=== PATIENT | male | born 1960 | race Caucasian/White ===

== ENCOUNTER 2025-11-06 12:08 | Outpatient (CLI) | payer BC, SELFPAY ==
--- NOTE | ~2025-11-06 | US_ITS ---
EXAMINATION: US FNA w image guidance DATE: 11/06/2025 13:38 INDICATION: Nontoxic multinodular goiter TECHNIQUE: A time-out was performed to verify the patient's name, date of , and procedure to be performed. The procedure and its benefits and risks were discussed with the patient. Risks specifically discussed included bleeding and infection. The patient understood the risks and agreed to proceed. The neck was prepped and draped in the usual sterile manner. 3 mL 1% lidocaine was used for local anesthesia. 6 passes were made with a 25G needle into the lesion. Appropriate needle location was documented with continuous sonographic guidance. A sterile bandage was applied. There were no immediate complications. FINDINGS: Grayscale ultrasound images demonstrate biopsy needles advanced into a 3.5 cm predominantly solid isoechoic nodule with lobular margins and shadowing coarse calcification in the mid to inferior right thyroid. IMPRESSION: 1. Successful ultrasound-guided fine needle aspiration of a 3.5 cm solid nodule in the mid to inferior right thyroid lobe Reviewed, dictated and finalized at location A. HEAD WORKER IMPRESSION: 1. Successful ultrasound-guided fine needle aspiration of a 3.5 cm solid nodul e in the mid to inferior right thyroid lobe
--- NOTE | 2025-11-06 13:34 | CY_PTH ---
PATIENT: Florin Sarabia LOC: [facility] U#:[id number] AGE/SX: 65/M ROOM: RE11/06/[address]: Willie Toth MD : 1960 BED: DIS: 11/06/2025 SPEC #: [id number] RECD: 11/06/25 13:37 STATUS: CATERINA REJoan #: [id number] MARYAN: 11/06/25 13:[address]: Willie Toth DEPT: [facility] Cytology RECD BY: Walter Bello ENTERED: 11/06/25 13:38 SP TYPE: Cytology OTHR DR: Ted Rubio M.D. Tissues: A - FNA Thyroid Procedures: Hematoxylin and Eosin Stain Cell Block Fine Needle Aspiration Evaluation Fna Additional Pass Fine Needle Aspiration Pathologist
--- OUTSIDE RECORDS SUMMARY | 2025-11-06 14:07 | XMS_ITS | Clinical Summary ---
Author Organization [facility] Address [address] [facility] [place] [address] Phone Care Team Providers Care Plant Machinist Name Role Phone Unavailable Primary Care Provider Unavailabl e Allergies No known active allergies Medications gabapentin (NEURONTIN) 100 mg capsule Take 200 mg by mouth 2 times daily. Active ferrous sulfate 325 mg (65 mg iron) tablet Take 325 mg by mouth daily. Active metFORMIN (GLUCOPHAGE XR) 500 mg Extended Release 24 hour tablet Take 500 mg by mouth 2 times daily with meals. Active tirzepatide (Mounjaro) 2.5 mg/0.5 mL Pen Injector Inject 2.5 mg by subcutaneous injection every 7 days. Active sertraline (Zoloft) 50 mg tablet Take 50 mg by mouth daily. Active magnesium oxide 400 mg magnesium Capsule Take by mouth daily. Active metoprolol succinate (TOPROL XL) 25 mg Extended Release 24 hour tablet Take 25 mg by mouth daily. 5 Active losartan (COZAAR) 25 mg tablet Take 25 mg by mouth daily. 5 Active HYDROcodone-stoney taminophen (NORCO) 5-325 mg tablet Take 2 tablets by mouth every 6 hours as needed for pain 40 Tablet 04/22/2025 12:55 PM CDT 5 Active Active Problems No known active problems Social History Tobacco Use Types Packs/Day Years Used Date Smoking Tobacco: Former Cigarettes Tobacco Cessation:Counseling Given: Not Answered Feeling Safe Answer Date Recorded Are you in a relationship wi th someone who hurts you emotionally and/or physically? No 04/22/2025 Sex and Gender Information Value Date Recorded Sex Assigned at Not on file Legal Sex Male 8:36 AM CDT Gender Identity Not on file Sexual Orientation Not on file Last Filed Vital Signs Vital Sign Reading Time Taken Comments Blood Pressure 124/81 04/22/2025 11:15 AM CDT Pulse 79 04/22/2025 11:15 AM CDT Temperature 36.4 C (97.5 F) 04/22/2025 9:49 AM CDT Respiratory Rate 9 04/22/2025 10:45 AM CDT Oxygen Saturation 93% 04/22/2025 11:15 AM CDT Inhaled Oxygen Concentration - - Weight 103 kg (227 lb) 04/22/2025 5:44 AM CDT Height 182.9 cm (6') 04/11/2025 9:49 AM CDT Body Mass Index 30.79 04/11/2025 9:49 AM CDT Plan of Treatment Health Maintenance Due Date Last Done Comments DIABETES ANNUAL FOOT EXAM 1978 DIABETES ANNUAL RETINAL EXAM 1978 DIABETES MICROALBUMIN ANNUAL SCREEN 1978 LDL CHOLESTEROL ANNUAL 1978 DTAP/TDAP/TD VACCINES (1 - Tdap) 1979 PNEUMOCOCCAL VACCINE 50+ YEARS (1 of 2 - PCV) 10/16/19 79 COLORECTAL SCREENING 2005 Colorectal Cancer Screening 2005 FIT-DNA Q 3 years 2005 FIT/FOBT Q 1 year 2005 Flex Sig/CT Colonography Q 5 years 2005 ZOSTER VACCINE (1 of 2) 2010 INFLUENZA VACCINE (#1) 2025 DIABETES HBA1C Q 6 MONTHS 08/31/2025 03/01/2025 Abdominal Aortic Aneurysm (AAA) Screening 2025 RSV VACCINE (60+ or ) (1 - 1-dose 75+ series) 2035 Medical Devices Implanted Type Area Turntable Engineer Device Identifier Shelf Expiration Date Model / Serial / Lot Hemostatic Surgiflo 8ml W/ Thrombin 2994 - [id number] Implanted:Qty : 1 on 04/22/2025 by Chito Vale III, MD at [facility] Hemostatic N/A: Spine Lumbar [employer]- [employer] [id number] 07/21/2026 2994 / / [id number] Wax Bone Natural 2.5gm Ylw [id number] - [id number] Implanted:Qty : 1 on 04/22/2025 at [facility] Hemostatic [employer] [id number] / / Insurance BCBS BLUE ACCESS/TRUE BLUE PPO RX [employer] Express Advance Directives For more information, please contact: [phone] * Full Code (Latest Code Status on File) Date Activated Date Inactivated Comments 04/22/2025 6:49 AM 04/22/2025 3:14 PM * Full Code Date Activated Date Inactivated Comments 04/22/2025 5:36 AM 04/22/2025 6:49 AM
--- OUTSIDE RECORDS SUMMARY | 2025-11-06 14:07 | XMS_ITS | Encounter Summary ---
Author Organization [facility] Address [facility] [place] [address] Care Team Providers Care Supervising Airplane Pilot Name Role Phone Ted Rubio MD Primary Care Provider [phone] Itzel Mattson MD Unavailable Chito Vale MD Unavailable [phone] Encounter Details Date Type Department Care Team (Late st Contact Info) Description 10/18/2025 Results Follow-Up [facility] [address] [place] [address] Donna Uribe, RN USE ECHOCARDIOGRAM Social History Tobacco Use Types Packs/Day Years Used Date Smoking Tobacco: Former Cigarettes Smokeless Tobacco: Never Comments:non-smoker Alcohol Use Standard Drinks/Week Comments Not Currently 0 (1 standard drink = 0.6 oz pur e alcohol) [facility] Utilities Answer Date Recorded In the past 12 months has [facility] [employer], gas, oil, or water Evalve threatened to shut off services in your home? No 02/28/2025 Humiliation, Afraid, Rape, and Kick questionnair e Answer Date Recorded Within the last year, have y ou been afraid of your partner or ex-partner? No 02/28/2025 Within the last year, have y ou been humiliated or emotionally abused in other ways by your partner or ex-partner? No Within the last year, have y ou been kicked, hit, slapped, or otherwise physically hurt by your partner or ex-partner? No 02/28/2025 Within the last year, have y ou been raped or forced to have any kind of sexual activity by your partner or ex-partner? No 02/28/2025 Overall Financial Resource Strain (CARDIA) Answe r Date Recorded How hard is it for you to pa y for the very basics like food, housing, medical care, and heating? Not hard at all 02/28/2025 PHQ-2 Answer Date Recorded PHQ-2 Score - If the patient scores above 3, please move on to questions 3-9 0 08/13/2022 Hunger Vital Sign Answer Date Recorded Within the past 12 months, y ou worried that your food would run out before you got the money to buy more. Never true 02/29/20 25 Within the past 12 months, t he food you bought just didn't last and you didn't have money to get more. Never true 02/28/2025 PRAPARE - Transportation Answer Date Re corded In the past 12 months, has l ack of transportation kept you from medical appointments or from getting medications? No 02/19 In the past 12 months, has l ack of transportation kept you from meetings, work, or from getting things needed for daily living? No 02/28/2025 Housing Stability Vital Sign Answer Nelson e Recorded In the last 12 months, was t here a time when you were not able to pay the mortgage or rent on time? No 02/28/2025 In the past 12 months, how m any times have you moved where you were living? 0 02/28/2025 At any time in the past 12 m [facility], were you homeless or living in a nursing home (including now)? No 02/28/2025 Sex and Gender Information Value Date Recorded Sex Assigned at Male 01/04/2025 11:46 AM COMMERCIAL SALES REPRESENTATIVE Legal Sex Male 10:03 PM COMMERCIAL SALES REPRESENTATIVE Gender Identity Male 03/01/2025 3:23 PM CDT Sexual Orientation Not on file documented as of this encounter Functional Status * Are you deaf or do you have serious difficulty hearing Answer Date of Assessment Author Status No 02/28/2025 4:46 PM CDT Alyssa Lr RN Active * Are you blind or do you have serious difficulty seeing, even when wearing glasses? Answer Date of Assessment Author Status No 02/28/2025 4:46 PM CDT Alyssa Lr RN Active * Do you have serious difficulty walking or climbing stairs? Answer Date of Assessment Author Status Yes 02/28/2025 4:46 PM Alyssa Bledsoe RN Active * Do you have difficulty dressing or bathing? Answer Date of Assessment Author Status No 02/28/2025 4:46 PM Alyssa Bledsoe RN Active * Because of a physical, mental, or emotional condition, do you have difficulty doing errands alone such as visiting a doctor's office or shopping? Answer Date of Assessment Author Status No 02/28/2025 4:46 PM Alyssa Bledsoe RN Active documented as of this encounter Mental Status * Because of a physical, mental, or emotional condition, do you have serious difficulty concentrating, remembering, or making decisions? Answer Entry Date Author Status No 02/28/2025 4:46 PM Alyssa Bledsoe RN Active documented in this encounter Plan of Treatment Upcoming Encounters Date Type Department Care Team (Late st Contact Info) Description 11/18/2025 2:30 PM COMMERCIAL SALES REPRESENTATIVE Appointment [facility] [address] [place] [address] Moon Sabillon, PHYS ASSISTANT [address] [place] [address] documented as of this encounter Visit Diagnoses Not on filedocumented in this encounter Care Teams Supervising Airplane Pilot Relationship Specialty Start Date End Date Ted Rubio MD [address] [place] [id number] PCP - General FAMILY PRACTICE 05/12/22 Itzel Mattson MD [address] [place] [address] [place] St[employer] Machine Operator CARDIOVASCULAR DISEASE 03/14/25 [place] [address] [facility] [place] [id number] NEUROLOGICAL SURGERY 03/18/25 documented as of this encounter
--- OUTSIDE RECORDS SUMMARY | 2025-11-06 14:07 | XMS_ITS | Clinical Summary ---
Author Organization [facility] Address [address] [place] [address] Care Team Providers Care Identity Management Consultant Name Role Phone Nael Rubio MD Primary Care Provider [phone] Itzel Mattson MD Unavailable Chito Vale MD Unavailable [phone] Allergies No known active allergies Medications cyclobenzaprine (FLEXERIL) 5 MG tabletIndicatio ns:Drop foot gait,Fall in shower Take 1 tablet (5 mg total) by mouth 3 (three) times daily as needed for Muscle Spasms. 90 tablet 5 Active AFO BRACE, DME,Indications :Foot drop, right Custom AFO brace 1 Device 5 Active Additional Information Patient taking differently: 1 Device Apply externally Daily, Custom AFO brace, Reported on 04/16/2025 gabapentin (NEURONTIN) 100 MG capsule Take 1 capsule (100 mg total) by mouth 3 (three) times daily. 5 Active MOUNJARO 2.5 MG/0.5ML injection Inject 2.5 mg into the skin every 7 days. 5 Active traMADol (ULTRAM) 50 MG tabletIndicatio ns:Chronic Pain,up to six a day Take 1 tablet (50 mg total) by mouth every 4 (four) hours as needed. Indications: Chronic Pain, up to six a day 90 tablet 1 5 Active Acetaminophen (TYLENOL OR) Take 1 tablet by mouth 3 (three) times daily. Active sertraline (ZOLOFT) 50 MG tablet Take 1 tablet (50 mg total) by mouth daily. Active metFORMIN ER (GLUCOPHAGE-XR) 500 MG 24 hr tablet Take 1 tablet (500 mg total) by mouth daily with breakfast. Active rosuvastatin (CRESTOR) 40 MG tabletIndicatio ns:Hyperlipidem ia Take 1 tablet (40 mg total) by mouth nightly at bedtime. 30 tablet 4 Active losartan (COZAAR) 25 MG tabletIndicatio ns:Elevated CPK,Abnormal ECG,Hyperlipide landon Take 1 tablet (25 mg total) by mouth daily. 90 tablet 3 5 Active metoprolol succinate ER (TOPROL-XL) 25 MG 24 hr tabletIndicatio ns:Elevated CPK,Abnormal ECG,Hyperlipide landon Take 1 tablet (25 mg total) by mouth daily. 90 tablet 3 Active Active Problems Problem Noted Date Diagnosed Date Fever, unknown origin 02/28/2025 Elevated CPK 02/28/2025 Chronic right-sided low back pain with sciatica 02/28/2025 Multilevel degenerative joint disease of spine 0 02/28/2025 Type 2 diabetes mellitus without complication Serum calcium elevated 02/28/2025 Elevated liver enzymes 02/28/2025 Obstructive sleep apnea syndrome 02/28/2025 Foot drop, right 01/28/2025 Right hip pain 01/28/2025 Encounters Date Type Department Care Team Description 10/18/2025 [facility] [address] [place] [address] Donna Uribe, ERASTO USE ECHOCARDIOGRAM 09/30/2025 10:49 AM FIGHT MANAGER - 09/30/2025 11:59 PM FIGHT MANAGER Hospital Encounter [facility] Non Invasive Cardiology - [facility] [address] [place] [address] Renee Taylor MD Discharge Disposition: Home or Self Care (Routine Discharge) 09/30/2025 Travel 09/16/2025 8:49 AM CDT - 09/16/2025 11:59 PM CDT Hospital Encounter [facility] [address] [facility] [place] [address] Araseli Garcia NP Discharge Disposition: Home or Self Care (Routine Discharge) 09/16/2025 [facility] [address] [place] [address] Araseli Garcia NP 09/16/2025 Travel 09/09/2025 12:19 PM CDT - 09/09/2025 11:59 PM CDT Hospital Encounter [facility] [address] [place] [address] Nael Rubio MD Discharge Disposition: Home or Self Care (Routine Discharge) 09/09/2025 Travel 09/03/2025 Telephone [place] [address] [place] [address] Renee Taylor MD Information 09/02/2025 9:33 AM CDT - 09/02/2025 11:59 PM CDT Hospital Encounter [facility] [address] [place] [address] Perla Coffman FNP Discharge Disposition: Home or Self Care (Routine Discharge) 09/02/2025 Travel 08/22/2025 10:35 AM CDT - 08/22/2025 11:59 PM CDT Hospital Encounter [facility] [address] [place] [address] Perla Coffman FNP Discharge Disposition: Home or Self Care (Routine Discharge) 08/22/2025 10:34 AM CDT Hospital Encounter [facility] [address] [place] [address] Perla Coffman FNP Discharge Disposition: Home or Self Care (Routine Discharge) 08/22/2025 Orders Only [facility] [address] [place] [address] Perla Coffman FNP 08/22/2025 Travel from Last 3 Months Family History Medical History Relation Comments Hypertension Father Prostate Cancer Father Other cancer Mother lymphoid cancer Diabetes Sister Relation Status Comments Father Mother Sister Social History Tobacco Use Types Packs/Day Years Used Date Smoking Tobacco: Former Cigarettes Smokeless Tobacco: Never Tobacco Cessation:Counseling Given: Not Answered Comments:non-smoker Alcohol Use Standard Drinks/Week Comments Not Currently 0 (1 standard drink = 0.6 oz pur e alcohol) [facility] Utilities Answer Date Recorded In the past 12 months has e electric, gas, oil, or water company threatened to shut off services in your [...] any time in the past 12 [facility], were you homeless or living in a [place] health care facility (including now)? No 02/28/2025 Sex and Gender Information Value Date Recorded Sex Assigned at Male 01/04/2025 11:46 AM FIGHT MANAGER Legal Sex Male 10:03 PM FIGHT MANAGER Gender Identity Male 03/01/2025 3:23 PM CDT Sexual Orientation Not on file Last Filed Vital Signs Vital Sign Reading Time Taken Comments Blood Pressure 140/76 04/16/2025 8:45 AM CDT Pulse 78 04/16/2025 8:45 AM CDT Temperature 35.9 C (96.6 F) 03/27/2025 12:10 PM CDT Respiratory Rate 18 04/16/2025 8:45 AM CDT Oxygen Saturation 99% 03/27/2025 12:10 PM CDT Inhaled Oxygen Concentration - - Weight 104.8 kg (231 lb) 04/16/2025 8:45 AM CDT Height 182.9 cm (6') 04/16/2025 8:45 AM CDT Body Mass Index 31.33 04/16/2025 8:45 AM CDT Plan of Treatment Upcoming Encounters Date Type Department Care Team (Late st Contact Info) Description 11/18/2025 2:30 PM FIGHT MANAGER Appointment [facility] [address] [facility] [place] [address] Moon Sabillon, SUM[facility] [address] [place] [address] Health Maintenance Due Date Last Done Comments Kidney Health Evaluation 1960 Lipid Panel 1960 Diabetes: Retinopathy Eye Exam 1978 DTaP, Tdap and Td Vaccines (1 - Tdap) 1979 Zoster Vaccines (1 of 2) 2010 Pneumococcal Vaccine: 50+ Years (2 of 2 - PCV) 09/16/2014 09/16/2013 COVID-19 Vaccine (4 - season) 2025 11/07/2021, 02/26/2021, 01/28/2021 Influenza Adult (#1) 2025 09/25/2021, 09/07/2020, 08/24/2019, Additional history exists Hemoglobin A1C 08/31/2025 03/01/2025 Colorectal Cancer Screening FIT/FOBT (1 Year) 03/01/2026 03/01/2025 RSV Immunization or 60+ Years (1 - 1-dose 75+ series) 2035 Hepatitis C Completed 03/01/2025 AAA SCREENING Completed 09/02/2025, 08/22/2025 Hepatitis A Vaccines Aged Out No long er eligible based on patient's age to complete this topic Meningococcal B Vaccine Aged Out No l onger eligible based on patient's age to complete this topic Meningococcal Vaccine Aged Out No jacob tramaine eligible based on patient's age to complete this topic RSV Immunizations Under 20 Months Aged Out No longer eligible based on patient's age to complete this topic Procedures Procedure Name Priority Date/Time Associated Diagnosis Comments USE ECHOCARDIOGRAM Routine 09/30/2025 11 :19 AM FIGHT MANAGER Elevated CPK Abnormal ECG HC EIA QL HISTOPLASMA AG-90 Routine 09/16/2025 9:12 AM CDT Pulmonary nodule MISCELLANEOUS LAB TEST Routine 9:12 AM CDT Pulmonary nodule HC ALLERGEN IGE QN EA Routine 09/16/2025 9:11 AM CDT Pulmonary nodule HC TB QUANTIFERON GOLD Routine 9:11 AM CDT Pulmonary nodule HISTOPLASMA ANTIBODY PANEL Routine 09/16/2025 9:11 AM CDT Pulmonary nodule CRYPTOCOCCAL AG SCREEN W/ REFLEX Routine 09/16/2025 9:11 AM CDT Pulmonary nodule COCCIDIOIDES AB, CF & ID Routine 09/16/2025 9:11 AM CDT Pulmonary nodule HC BLASTOMYCES AB-90 Routine 09/16/2025 9:11 AM CDT Pulmonary nodule HC ASPERGILLUS AB-90 Routine 09/16/2025 9:11 AM CDT Pulmonary nodule US THYROID Routine 09/09/2025 12:52 PM CDT Thyroid nodule CT CHEST W CON Routine 09/02/2025 9:48 AM CDT Lung nodule HC LIPASE STAT 08/22/2025 10:54 AM CDT RLQ abdominal pain HC AMYLASE STAT 08/22/2025 10:54 AM CDT RLQ abdominal pain HC CBC AUTO W/AUTO DIFF STAT 08/22/20 10:54 AM CDT RLQ abdominal pain HC BASIC METABOLIC PANEL STAT 08/22/2025 10:54 AM CDT RLQ abdominal pain CT ABD+PEL WO CON STAT 08/22/2025 10: 47 AM CDT Abdominal pain OCCULT BLOOD, FECES Routine 03/01/2025 1 0:10 AM CDT HEPATITIS PANEL,ACUTE Routine 03/01/2025 5:24 AM CDT HEMOGLOBIN, GLYCOSYLATED Routine 03/01/2025 5:24 AM CDT from Last 3 Months or Most Recently Relevant to Health Maintenance Results * USE ECHOCARDIOGRAM (09/30/2025 11:19 AM FIGHT MANAGER) Anatomical Region Laterality Modality Cardiac Echocardiogram 09/30/2025 10:5 1 AM FIGHT MANAGER Narrative 09/30/2025 11:51 AM FIGHT MANAGER Echocardiography Report Pat.Name: VAL FLORIN MUNA Pat.ID: [id number] St.Date: 09/30/2025 Refer.MD: RENEE TAYLOR Exam Time: 10:51:00 AM Study Type:ECHO WITH CARDIAC DOPPLER COMP Height: 72 in Weight: 231 lb BSA: 2.26 m2 Age: 11 1960,64Y Sex: M BP: 140/76 HR: 63 bpm Sonogrphr: ANNMARIE Kim Pat. Stat.:Outpatient CPT - 4: [id number] Reason for Study:Structure and function Procedures: 2D, M-mode, Doppler, Color Flow Race: W ++++++++++++++++++++++++++++++++++++ SUMMARY: ++++++++++++++++++++++++++++++++++++ The left ventricular size is mildly enlarged. The left ventricular systolic function is normal. The calculated ejection fraction is 61%. The right ventricular function is normal. Mild tricuspid regurgitation. The peak pulmonary artery systolic pressure is estimated to be approximately 22 mmHg. ++++++++++++++++++++++++++++++++++++ FINDINGS: ++++++++++++++++++++++++++++++++++++ LV: The left ventricular size is mildly enlarged. The left ventricular systolic function is normal. The calculated ejection fraction is 61%. The septal E/e' is indeterminate at 8-15. The lateral E/e' is normal at <8. All carter are normal RV: The right ventricle size is normal. The right ventricular function is normal. LA: The left atrial volume is normal ( less than 34 ml/M2). RA: The right atrial size is normal. IAS: Atrial septum is normal. MARKO: No evidence of pericardial effusion. AO: The proximal ascending aorta measures 3.8cm. PA: The peak pulmonary artery systolic pressure is estimated to be approximately 22 mmHg. Estimated right atrial pressure of 3 mmHg. SVn: Inferior vena cava shows >50% collapse with respiration consistent with normal right atrial pressure. AV: The aortic valve is trileaflet. No evidence of aortic valve stenosis. No evidence of aortic valve regurgitation. Mild aortic valve sclerosis. MV: No evidence of significant mitral regurgitation. No evidence of mitral stenosis. PV: The pulmonic valve is normal There is trace pulmonic regurgitation TV: Mild tricuspid regurgitation. No evidence of tricuspid valve stenosis. ++++++++++++++++++++++++++++++++++++ MEASUREMENTS: ++++++++++++++++++++++++++++++++++++ DOPPLER LVOT LVOTpkPG 5 mmHg LVOTmnPG 3 mmHg LVOTpkVel 110 cm/s (70-110) LVOT SV 85 ml LVOT TVI 22.4 cm Right Atrium RA Press 3 mmHg AV Forward Flow AV TVI 27.9 cm AV pkPG 8 mmHg AV pkVel 144 cm/s (100-170) Area (TVI) 3.05 cm2 (3-5) AV mnVel 99.4 cm/s Area (Td) 2.9 cm2 (3-5)* AV mnPG 5 mmHg MV Forward Flow MV DeTm 173 msec MV E/A 1.7 MV mnPG 1 mmHg MV pkE 71.6 cm/s (60-130)+ MV pkPG 4 mmHg MV pkA 42 cm/s PV Forward Flow PV pkVel 149 cm/s (60-90)+* PV pkPG 9 mmHg PV Regurg Flow PV pkVel 76 cm/s PV pkPG 2 mmHg TV Regurg Flow TV pkPG 19 mmHg TV pkVel 219 cm/s (30-70)* Right Ventricle RVsys P 22 mmHg Right Ventricle 11.3 cm/s Lat E' Lat e 12.5 cm/s Lat E/E' Lat E/e 5.7 Med E' Med e 7.07 cm/s Med E/E' Med E/e 10.1 Aortic Valve Aortic Valve Ar 1.35 Aortic Valve Ve 0.76 AV DI Value 0.8 FRNECH (VTI) Index Value 1.35 Lat MA LV Peak Finnegan Ti 8.59 cm/s Left Ventricle 1.5 LV Mass 2D Value 189 g LV Mass Eqnkc1V Value 83.6 g/m2 Med MA LV Peak Finnegan Ti 8.49 cm/s Left Ventricle 0.8 RA Volume Atrial North 5.13 cm Atrial North 15.3 cm2 Atrial North 37.2 ml 2D Left Ventricle LVIDd 5.48 cm (3.6-5.2)* LV EF(Bi-Plane) 61.9 % (63-77)* LVIDs 3.59 cm (2.3-3.9) LVPW LVPWd 0.977 cm Ventricular Septum IVSd 0.857 cm Left Atrium LA a-p 3.8 cm (2.8-3.4)* Aorta Ao Sin 3.1 cm (2.5-3.3)+ Ao Asc 3.8 cm (2.1-3.4)* LVOT LVOT 2.2 cm Ratios IVS Aortic Sinotubular Junction Diameter 2.47 cm LA Biplane LAVol I BP 28.3 ml/m2 Right Ventricle Right Ventricle 3.55 cm Right Ventricle 3.89 cm MMODE Aorta Ao Rt 3.3 cm (2-3.7) TA Tricuspid Annul 2.54 cm ++++++++++++++++++++++++++++++++++++ WALL MOTION: ++++++++++++++++++++++++++++++++++++ RESTING WALL MOTION: All carter are normal Wall Index = 1 <Electronic Signature> 09/30/2025 11:51 AM Renee Taylor M.D Procedure Note Md Generic Conversion, - 09/30/2025 Echocardiography Report Pat.Name: FLORIN NEAL Pat.ID: [id number] .Date: 09/30/2025 Refer.MD: RENEE TAYLOR Exam Time: 10:51:00 AM Study Type:ECHO WITH CARDIAC DOPPLER COMP Height: 72 in Weight: 231 lb BSA: 2.26 m2 Age: 11 1960,64Y Sex: M BP: 140/76 HR: 63 bpm Sonogrphr: ANNMARIE Kim Pat. Stat.:Outpatient CPT - 4: [id number] Reason for Study:Structure and function Procedures: 2D, M-mode, Doppler, Color Flow Race: W ++++++++++++++++++++++++++++++++++++ SUMMARY: ++++++++++++++++++++++++++++++++++++ The left ventricular size is mildly enlarged. The left ventricular systolic function is normal. The calculated ejection fraction is 61%. The right ventricular function is normal. Mild tricuspid regurgitation. The peak pulmonary artery systolic pressure is estimated to be approximately 22 mmHg. ++++++++++++++++++++++++++++++++++++ FINDINGS: ++++++++++++++++++++++++++++++++++++ LV: The left ventricular size is mildly enlarged. The left ventricular systolic function is normal. The calculated ejection fraction is 61%. The septal E/e' is indeterminate at 8-15. The lateral E/e' is normal at <8. All carter are normal RV: The right ventricle size is normal. The right ventricular function is normal. LA: The left atrial volume is normal ( less than 34 ml/M2). RA: The right atrial size is normal. IAS: Atrial septum is normal. MARKO: No evidence of pericardial effusion. AO: The proximal ascending aorta measures 3.8cm. PA: The peak pulmonary artery systolic pressure is estimated to be approximately 22 mmHg. Estimated right atrial pressure of 3 mmHg. SVn: Inferior vena cava shows >50% collapse with respiration consistent with normal right atrial pressure. AV: The aortic valve is trileaflet. No evidence of aortic valve stenosis. No evidence of aortic valve regurgitation. Mild aortic valve sclerosis. MV: No evidence of significant mitral regurgitation. No evidence of mitral stenosis. PV: The pulmonic valve is normal There is trace pulmonic regurgitation TV: Mild tricuspid regurgitation. No evidence of tricuspid valve stenosis. ++++++++++++++++++++++++++++++++++++ MEASUREMENTS: ++++++++++++++++++++++++++++++++++++ DOPPLER LVOT LVOTpkPG 5 mmHg LVOTmnPG 3 mmHg LVOTpkVel 110 cm/s (70-110) LVOT SV 85 ml LVOT TVI 22.4 cm Right Atrium RA Press 3 mmHg AV Forward Flow AV TVI 27.9 cm AV pkPG 8 mmHg AV pkVel 144 cm/s (100-170) Area (TVI) 3.05 cm2 (3-5) AV mnVel 99.4 cm/s Area (Td) 2.9 cm2 (3-5)* AV mnPG 5 mmHg MV Forward Flow MV DeTm 173 msec MV E/A 1.7 MV mnPG 1 mmHg MV pkE 71.6 cm/s (60-130)+ MV pkPG 4 mmHg MV pkA 42 cm/s PV Forward Flow PV pkVel 149 cm/s (60-90)+* PV pkPG 9 mmHg PV Regurg Flow PV pkVel 76 cm/s PV pkPG 2 mmHg TV Regurg Flow TV pkPG 19 mmHg TV pkVel 219 cm/s (30-70)* Right Ventricle RVsys P 22 mmHg Right Ventricle 11.3 cm/s Lat E' Lat e 12.5 cm/s Lat E/E' Lat E/e 5.7 Med E' Med e 7.07 cm/s Med E/E' Med E/e 10.1 Aortic Valve Aortic Valve Ar 1.35 Aortic Valve Ve 0.76 AV DI Value 0.8 FRENCH (VTI) Index Value 1.35 Lat MA LV Peak Finnegan Ti 8.59 cm/s Left Ventricle 1.5 LV Mass 2D Value 189 g LV Mass Caufu1W Value 83.6 g/m2 Med MA LV Peak Finnegan Ti 8.49 cm/s Left Ventricle 0.8 RA Volume Atrial North 5.13 cm Atrial North 15.3 cm2 Atrial North 37.2 ml 2D Left Ventricle LVIDd 5.48 cm (3.6-5.2)* LV EF(Bi-Plane) 61.9 % (63-77)* LVIDs 3.59 cm (2.3-3.9) LVPW LVPWd 0.977 cm Ventricular Septum IVSd 0.857 cm Left Atrium LA a-p 3.8 cm (2.8-3.4)* Aorta Ao Sin 3.1 cm (2.5-3.3)+ Ao Asc 3.8 cm (2.1-3.4)* LVOT LVOT 2.2 cm Ratios IVS Aortic Sinotubular Junction Diameter 2.47 cm LA Biplane LAVol I BP 28.3 ml/m2 Right Ventricle Right Ventricle 3.55 cm Right Ventricle 3.89 cm MMODE Aorta Ao Rt 3.3 cm (2-3.7) TA Tricuspid Annul 2.54 cm ++++++++++++++++++++++++++++++++++++ WALL MOTION: ++++++++++++++++++++++++++++++++++++ RESTING WALL MOTION: All carter are normal Wall Index = 1 <Electronic Signature> 09/30/2025 11:51 AM Renee Taylor M.D Renee Taylor MD ECHO Final Result * MISCELLANEOUS LAB TEST (09/16/2025 9:12 AM CDT) TEST NAME: [id number] BLASTOMYES ANTIGEN QUANTITATIVE 09/16/2025 9:[address] [facility] SPECIMEN TYPE URINE 09/16/2025 9:[address] [facility] TEST RESULT: Flexitest 1 09/19/2025 9:14 PM CDT [facility] AYALA OSPINA Comment: Flexitest 1 MVista(R) Blastomyces Ag Quantitative EIA Specimen Type: Urine Result: None Detected ng/mL Interpretation: Negative Test Parameters: Reference Interval: None Detected Reportable Range: 0.31 ng/mL - 20.00 ng/mL Results above 20.00 ng/mL are reported as 'Positive, Above the Limit of Quantification' When tested in cultures of 10(5)-10(6) organisms/mL, cross-reactions occurred with Histoplasma spp., Coccidioides spp., Paracoccidioides brasiliensis, Talaromyces marneffei, Aspergillus nidulans, and [place] tropicalis. This test was developed and its performance characteristics determined by [facility]. It has not been cleared or approved by the FDA; however, FDA clearance or approval is not currently required for clinical use. The results are not intended to be used as the sole means for clinical diagnosis or patient management decisions. Test performed by [facility] [address] [place] [address] [place] [address] Phone: Cardiac Cath Technician: Rafael Tang MD Test Reported by Olga Lidia Olvera, [employer] Jorge L [facility], [address] [place] [address], [place] Dylan Mart M.D., Ph.D., Director of Laboratories , [facility] [id number] 09/16/2025 9:12 AM CDT Araseli Garcia LABORATORY Final Result [facility] [address] [place], [place] , [place] [phone] [facility] [address] [place] [address], * HISTOPLASMA ANTIGEN (09/16/2025 9:12 AM CDT) SPECIMEN SOURCE URINE 9:[address] [facility] HISTOPLASMA ANTIGEN REPORT 09/19 10:00 PM CDT [facility] Comment: Result: None Detected ng/mL Test Parameters: Reference Interval: None Detected Reportable Range: Positive Results reported in ng/mL from 0.20 ng/mL to 20.00 ng/mL Positive results above 20.00 ng/mL are reported as Above the Limit of Quantification Cross-reactions occur with Blastomyces spp., Coccidioides spp., and Paracoccidioides brasiliensis. INTERPRETATION Negative 09/19/2025 10:00 PM CDT [facility] SANJUANA SNYDER Comment: This test was developed and its performance characteristics determined by [facility]. It has not been cleared or approved by the FDA; however, FDA clearance or approval is not currently required for clinical use. The results are not intended to be used as the sole means for clinical diagnosis or patient management decisions. Test performed by [facility] [address] [place] [address], [place] [address] Phone: Cardiac Cath Technician: Rafael Tang MD Test Reported by [employer] [place], [employer] [facility], [address] [place], [place] Dylan Mart M.D., Ph.D., Director of Laboratories , CLIA [id number] URINE SPECIMEN / Unknown 09/16/2025 9:12 AM CDT Araseli Garcia NP BODY FLUIDS AND STOOLS ORDERAB LES Final Result [facility] [place]IR[place] [address] [place], [place] , [place] [phone] [facility] [address] [place] [address], [place] [phone] * CRYPTOCOCCAL AG SCREEN W/ REFLEX (09/16/2025 9:11 AM CDT) CRYPTOCOCCAL ANTIGEN S/P/B NEGATIVE NEGATIVE 09/17/2025 9:09 AM CDT [facility] 09/16/2025 9:11 AM CDT Araseli Garcia NP LABORATORY Final Result Performing Organization Address City/[facility]/ZIP Co de Phone Number [facility] [address] [place] [address], [place] [phone] [id number] * COCCIDIOIDES AB, CF & ID (09/16/2025 9:11 AM CDT) COCCIDIOIDES CF <1:2 <1:2 2:59 PM CDT [facility] AYALA OSPINA Comment: Interpretive Criteria: <1:2 Antibody Not Detected > or = 1:2 Antibody Detected All serum titers > or = 1:2 should be considered evidence indicative of coccidioidomycosis, although titers of 1:2 and 1:4 should be confirmed by Immunodiffusion testing. Titers exceeding 1:16 usually reflect disseminated disease. In general, higher titers are correlated with disease severity, and changes in serial titers are of prognostic value. A negative CF test does not, however, rule out diagnosis. Only 70% of patients with cavitary diseases are positive, and only 30% of patients with nodular disease are positive. This test was developed and its analytical performance characteristics have been determined by [employer]. It has not been cleared or approved by the FDA. This assay has been validated pursuant to the CLIA regulations and is used for clinical purposes. COCCIDIODES AB (ID) Negative Negative 09/21 2:59 PM CDT [facility] AYALA OSPINA Comment: Interpretive Criteria: Negative: Antibody Not Detected Positive: Antibody Detected The immunodiffusion (ID) procedure correlates both in sensitivity and clinical utility with the CF test. The ID test, which detects IgG directed to the F antigen, becomes positive within 4 weeks after infection and remains positive throughout clinically active disease. It is most useful in confirming the specificity of low CF titers, where lines of identity are formed with reference antisera. Positive ID reactions are diagnostic for coccidioidomycosis and usually indicate active or recent disease and remain detectable for up to 1 year thereafter. Test Performed by [employer] [place], [employer] [facility], [address] [place] [address] Dylan Mart M.D., Ph.D., Director of Laboratories , CLIA [id number] 09/16/2025 9:11 AM CDT Araseli Garcia NP LABORATORY Final Result [facility] [address] , * HISTOPLASMA ANTIBODY PANEL, CF AND ID (09/16/2025 9:11 AM CDT) HISTOPLASMA YEAST AB <1:8 <1:8 09/21/2025 2:59 PM CDT [facility] SANJUANA SNYDER HISTOPLASMA MYCELIAL AB <1:8 <1:8 09/21/2025 2:59 PM CDT [facility] SANJUANA SNYDER Comment: Interpretive Criteria: <1:8 - Antibody Not Detected > or = 1:8 - Antibody Detected Complement-fixation (CF) titers greater than or equal to 1:8 are generally considered evidence indicative of histoplasmosis. Higher titers increase the probability of infection. However, positive titers are also seen with fungal infections other than histoplasmosis, and confirmation of antibody specificity with immunodiffusion procedures is recommended. Changing titers are useful both in diagnosis and in assessment of treatment efficacy. This test was developed and its analytical performance characteristics have been determined by [employer], [place]. It has not been cleared or approved by the FDA. This assay has been validated pursuant to the CLIA regulations and is used for clinical purposes. HISTOPLASMA CAPSULATUM H AB Negative Negative 09/21/2025 2:59 PM CDT [facility] SANJUANA SNYDER Comment: This immunodiffusion assay is highly specific for Histoplasmosis infection but may have low sensitivity in early infection. Two different immunoprecipitin bands may be detected. The M band develops with acute infection, is often present in chronic infection, and may persist for months to years. The M band may be detected in persons with recent histoplasmin skin testing. The H band, which is usually present with the M band, generally suggests a chronic or severe acute infection. The presence of both the H and M bands is considered conclusive for the diagnosis of histoplasmosis. Test Performed by [facility], [place], [address] [place], [place] Dylan Mart M.D., Ph.D., Director of Laboratories , [place] [id number] HISTOPLASMA CAPSULATUM M AB Negative Negative 09/21/2025 2:59 PM CDT [employer] SANJUANA SNYDER 09/16/2025 9:11 AM CDT Araseli Garcia NP LABORATORY Final Result [facility] [address] [place], [place] , * QUANTIFERON TBGOLD TUBERCULOSIS TEST (09/16/2025 9:11 AM CDT) [facility] TB1 AG MINUS NIL 0.04 IU/ML 09/17/20 12:55 PM CDT [facility] TB2 AG MINUS NIL 0.02 IU/ML 09/17/20 12:55 PM CDT [facility] TB QUANTIFERON NEGATIVE NEGATIVE 09/17/2025 12:55 PM CDT [facility] TB INTERPRETATION M. tuberculosis infection unlikely but cannot be excluded especially when any illness is consistent with TB disease and/or likelihood of progression to disease is increased. In patients at high risk to M. tuberculosis infection, a second test should be considered. 09/17/2025 12:55 PM CDT [facility] 09/16/2025 9:11 AM CDT Araseli Garcia NP LABORATORY Final Result [facility] [address] [place] [address], [id number] * BLASTOMYCES AB PANEL CF ID (09/16/2025 9:11 AM CDT) BLASTOMYCES AB FIXATION <1:8 <1:8 09/21/2025 2:59 PM CDT [employer] SANJUANA SNYDER Comment: Interpretive Criteria: <1:8 Antibody Not Detected > or = 1:8 Antibody Detected Although titers of 1:8 and greater are considered positive, confirmed serological diagnosis of blastomycosis by the CF test requires a four-fold or greater increase in titer between acute and convalescent specimens, and lack of corresponding titers to C. immitis and H. capsulatum. Specificity can only be demonstrated by immunodiffusion procedures. A negative CF test does not rule out the diagnosis of active blastomycosis, as less than 50% of sera from patients with proven blastomycosis are positive by this assay. This test was developed and its analytical performance characteristics have been determined by [facility]. It has not been cleared or approved by the U.S. Food and Drug Administration. This assay has been validated pursuant to the CLIA regulations and is used for clinical purposes. BLASTOMYCES AB Negative Negative 09/21/2025 2:59 PM CDT [employer] SANJUANA SNYDER Comment: Interpretive Criteria: Negative: Antibody not detected Positive: Antibody detected A positive result is diagnostic of active or recent blastomycosis and is found in approximately 80% of proven cases of blastomycosis. Test Performed by [facility], [facility], [address] [place] [address] Dylan Mart M.D., Ph.D., Director of Laboratories , [facility] [id number] 09/16/2025 9:11 AM CDT Araseli Garcia NP LABORATORY Final Result Performing Organization Address City/[facility]/ZIP Co de Phone Number [employer] [address] , [place] [phone] * ALLERGEN ASPERGILLUS FUMIGATUS (09/16/2025 9:11 AM CDT) ALLERGEN ASPERGILLUS FUMIGATUS <0.35 <0.35 kU/L 09/17/2025 12:55 PM CDT [facility] Comment:<0.35 IS CLASS 0 (NE GATIVE) 09/16/2025 9:11 AM CDT Araseli Garcia NP LABORATORY Final Result [facility] [address] [place] [address], [id number] * ASPERGILLUS ANTIBODY, ID (09/16/2025 9:11 AM CDT) ASPERGILLUS FLAVUS AB Negative Negative 09/21/2025 2:59 PM CDT [employer] SANJUANA SNYDER ASPERGILLUS NIGER AB Negative Negative 09/21/2025 2:59 PM CDT [employer] SANJUANA SNYDER ASPERGILLUS FUMIGATUS AB Negative Negative 09/21/2025 2:59 PM CDT [employer] SANJUANA SNYDER Comment: Interpretive Criteria: Negative: Antibody not detected Positive: Antibody detected A positive result is represented by 1 or more precipitin bands, and may indicate fungus ball, allergic bronchopulmonary aspergillosis (WAYNE) or invasive aspergillosis. Generally, the appearance of 3-4 bands indicates either fungus ball or WAYNE. Test Performed by [facility], [facility], [address] [place] [address] Dylan Mart M.D., Ph.D., Director of Laboratories , [place] [id number] 09/16/2025 9:11 AM CDT Araseli Garcia NP LABORATORY Final Result [employer] [address] , * US THYROID (09/09/2025 12:52 PM CDT) Anatomical Region Laterality Modality Neck Ultrasound 09/11/2025 1:58 PM CDT Impressions 09/11/2025 2:01 PM CDT IMPRESSION: Two adjacent large nodules on the right. Consider ultrasound-guided fine-needle aspirate biopsy. Otherwise, consider follow-up ultrasound in 6-12 months. Ordered By: NAEL RUBIO Interpreted By: Vicente Mckeon MD, 09/11/2025 1:58 PM Narrative 09/11/2025 2:[address] PM [address] [place] [address] Examination: US THYROID Exam time: 09/09/2025 12:22 PM Indication: Thyroid nodule evaluation Comparison: CT chest 09/02/2025 Technique: Grayscale and color Doppler thyroid ultrasound Findings: Heterogeneous texture and echoes of the gland due to nodularity. Mild increase in the vascularity of the gland. The right lobe measures 6 x 2.7 x 2.9 cm, left 6.2 x 2.3 x 2.1 cm, and isthmus 0.5 cm. Right-sided TR 3 nodule measuring 2.4 cm. Adjacent similar 1.9 cm nodule. Left multiple nodules, largest 1.2 cm TR 4 nodule. Isthmus with a 1 cm similar nodule that is correlated to the right side. Procedure Note Vicente Mckeon MD - 09/11/2025 [facility] [address] [place] [address] Examination: US THYROID Exam time: 09/09/2025 12:22 PM Indication: Thyroid nodule evaluation Comparison: CT chest 09/02/2025 Technique: Grayscale and color Doppler thyroid ultrasound Findings: Heterogeneous texture and echoes of the gland due to nodularity.Mild increase in the vascularity of the gland. The right lobe measures 6 x2.7 x 2.9 cm, left 6.2 x 2.3 x 2.1 cm, and isthmus 0.5 cm. Right-sided TR 3 nodule measuring 2.4 cm. Adjacent similar 1.9 cmnodule. Left multiple nodules, largest 1.2 cm TR 4 nodule. Isthmus with a 1 cm similar nodule that is correlated to the right side. IMPRESSION: Two adjacent large nodules on the right. Consider gncisdmegc-hffbzyexsm-entrfo aspirate biopsy. Otherwise, consider follow-up ultrasound in6-12 months. Ordered By: NAEL RUBIO Interpreted By: Vicente Mckeon MD, 09/11/2025 1:58 PM us Nael Rubio MD ULTRASOUND Final Resul t * CT CHEST W CON (09/02/2025 9:48 AM CDT) Anatomical Region Laterality Modality Chest Computed Tomogra phy 09/04/2025 1:42 PM CDT Impressions 09/04/2025 1:52 PM CDT IMPRESSION: 1. Redemonstrated right lower lobe mass not otherwise well characterized due to respiratory motion. Consider PET/CT for further characterization. 2. No acute intrathoracic process identified. 3. Approximately 2.5 cm right lobe thyroid nodule. Sonographic correlation is recommended. Ordered By: PERLA COFFMAN Interpreted By: Abdiel Denson MD, 09/04/2025 1:42 PM Narrative 09/04/2025 1:52 PM CDT [place] [address] [place] [address] Examination: CT of the chest with contrast. Exam time: 0949 hours. Clinical history: Follow-up of incidentally detected right lung mass on abdominopelvic imaging. Comparison: Noncontrast CT of the abdomen and pelvis, 08/22/2025. Technique: Following the administration of intravenous contrast, spiral scanning was performed through the chest. Sagittal and coronal reconstructions were performed from the data set. A dose lowering technique was used for this procedure, which may include, but is not limited to, dose reduction techniques, automated exposure control, the use of iterative reconstruction and ALARA/Image Gently techniques. Findings: There is image degradation due to respiratory motion. There is minor atherosclerotic calcification of the aorta. A physiologic volume of pericardial fluid is present. The heart and great vessels are otherwise unremarkable. There are calcified AP window and left hilar lymph nodes, compatible with old granulomatous disease. No hilar or mediastinal adenopathy is identified. No endobronchial abnormality is identified. There are bilateral calcified pulmonary granulomas. Allowing for the respiratory motion, the left lung is otherwise clear. Right lower lobe mass abutting the inferior pulmonary vein is redemonstrated although less well visualized due to the respiratory motion artifact. It is best appreciated on coronal reconstruction measuring approximately 2.2 cm (image 65). Allowing for the respiratory motion, the right lung is otherwise clear. No pleural abnormalities are seen. The chest wall structures appear intact. There is an approximately 2.5 cm in greatest dimension hypoenhancing right lobe thyroid nodule. Correlation with ultrasound is recommended. The included sections through the upper abdomen show no acute process. Procedure Note Abdiel Denson MD - 09/04/2025 [facility] [address] [place] [address] Examination: CT of the chest with contrast. Exam time: 0949 hours. Clinical history: Follow-up of incidentally detected right lung mass onabdominopelvic imaging. Comparison: Noncontrast CT of the abdomen and pelvis, 08/22/2025. Technique: Following the administration of intravenous contrast, spiralscanning was performed through the chest. Sagittal and coronalreconstructions were performed from the data set. A dose loweringtechnique was used for this procedure, which may include, but is notlimited to, dose reduction techniques, automated exposure control, the useof iterative reconstruction and ALARA/Image Gently techniques. Findings: There is image degradation due to respiratory motion. There isminor atherosclerotic calcification of the aorta. A physiologic volume ofpericardial fluid is present. The heart and great vessels are otherwiseunremarkable. There are calcified AP window and left hilar lymph nodes,compatible with old granulomatous disease. No hilar or mediastinaladenopathy is identified. No endobronchial abnormality is identified.There are bilateral calcified pulmonary granulomas. Allowing for therespiratory motion, the left lung is otherwise clear. Right lower lobemass abutting the inferior pulmonary vein is redemonstrated although lesswell visualized due to the respiratory motion artifact. It is bestappreciated on coronal reconstruction measuring approximately 2.2 cm(image 65). Allowing for the respiratory motion, the right lung isotherwise clear. No pleural abnormalities are seen. The chest wallstructures appear intact. There is an approximately 2.5 cm in greatestdimension hypoenhancing right lobe thyroid nodule. Correlation withultrasound is recommended. The included sections through the upper abdomenshow no acute process. IMPRESSION: 1. Redemonstrated right lower lobe mass not otherwise well characterizeddue to respiratory motion. Consider PET/CT for further characterization. 2. No acute intrathoracic process identified. 3. Approximately 2.5 cm right lobe thyroid nodule. Sonographic correlationis recommended. Ordered By: PERLA COFFMAN Interpreted By: Abdiel Denson MD, 09/04/2025 1:42 PM Perla Coffman [employer] CT Final Result * (ABNORMAL) BASIC METABOLIC PANEL (08/22/2025 10:54 AM CDT) SODIUM S/P/B 139 136 - 145 MMOL/L 08/22/2025 11:09 AM [facility] POTASSIUM S/P/B 4.3 3.5 - 5.1 MMOL/L 08/22/2025 11:09 AM [facility] CHLORIDE S/P/B 102 98 - 107 MMOL/L 08/22/2025 11:09 AM [facility] CO2 32.4(H) 21.0 - 32.0 MMOL/L 08/22/2025 11:09 AM [facility] GLUCOSE 108(H) 70 - 99 MG/DL 08/22/2025 11:09 AM [facility] Comment: FASTING GLUCOSE 100 TO 125 MG/DL IS CONSISTENT WITH IMPAIRED FASTING GLUCOSE. FASTING GLUCOSE >125 MG/DL IS CONSISTENT WITH DIABETES. RANDOM GLUCOSE >200 MG/DL WITH HYPERGLYCEMIC SYMPTOMS IS CONSISTENT WITH DIABETES. PER ADA GUIDELINES BUN 22 6 - 24 MG/DL 08/22/2025 11:09 AM [facility] CREATININE S/P/B 1.28 0.70 - 1.30 MG/DL 08/22/2025 11:09 AM [facility] CALCIUM S/P/B 11.0(H) 8.4 - 10.5 MG/DL 08/22/2025 11:09 AM [facility] ANION GAP 4.6(L) 5.0 - 15.0 MMOL/L 08/22/2025 11:09 AM [facility] OSMOLALITY (CALC) 292 MOSM/KG 025 11:09 AM [facility] Comment:REFERENCE RANGE NOT ESTABLISHED GFR ESTIMATE 62(L) >89 ML/MIN/1. 73 M2 08/22/2025 11:09 AM [facility] GFR NOTES GFR REFERENCE S: 08/22/2025 11:09 AM [facility] Comment: THE ESTIMATED GFR IS CALCULATED USING THE 2020 CKD-EPI EQUATION. THE FOLLOWING CATEGORIES FOR GRADING RENAL FUNCTION ARE RECOMMENDED BY THE INTERNATIONAL SOCIETY OF NEPHROLOGY (KDIGO 2012 CLINICAL PRACTICE GUIDELINE). G1,NORMAL OR HIGH: >89 ml/min/1.73 m2 G2,MILDLY DECREASED: 60-89 ml/min/1.73 m2 G3A,MILDLY TO MODERATELY DECREASED: 45-59 ml/min/1.73 m2 G3B,MODERATELY TO SEVERELY DECREASED: 30-44 ml/min/1.73 m2 G4,SEVERELY DECREASED: 15-29 ml/min/1.73 m2 G5,KIDNEY FAILURE: <15 ml/min/1.73 m2 08/22/2025 10:5 4 AM CDT us Perla M Augustus [employer]ENT LABORATORY Final Result [facility] [address] [place] [address], * (ABNORMAL) CBC W/DIFF AUTOMATED (08/22/2025 10:54 AM CDT) WBC 10.01 4.00 - 10.80 x10'3/uL 08/22/2025 11:[address] [facility] RBC 4.51 4.50 - 6.10 x10'6/uL 08/22/2025 11:[address] [facility] HGB 13.8 13.0 - 18.0 G/DL 08/22/2025 11:[address] [facility] HCT 42.5 37.0 - 52.0 % 08/22/2025 11:[address] [facility] MCV 94.2 78.0 - 100.0 FL 08/22/2025 11:[address] [facility] MCH 30.6 27.0 - 31.0 PG 08/22/2025 11:[address] [facility] MCHC 32.5(L) 33.0 - 36.0 G/DL 08/22/2025 11:[address] [facility] RDW 13.0 11.5 - 14.5 % 08/22/2025 11:[address] [facility] PLT 284 150 - 350 x10'3/uL 08/22/2025 11:[address] [facility] MPV 9.6 7.4 - 10.4 FL 08/22/2025 11:[address] [facility] CBC COMMENT NORMAL REFERENCE RANGE NOT ESTABLISHED FOR THE PROPORTIONAL LEUKOCYTE DIFFERENTIAL. 08/22/2025 11:[address] [facility] NEUTROPHILS % 81.0 % 08/22/2025 11:[address] [facility] LYMPHOCYTES % 7.0 % 08/22/2025 11:[address] [facility] MONOCYTES % 10.6 % 08/22/2025 11:[address] [facility] EOSINOPHILS % 0.9 % 08/22/2025 11:[address] [facility] BASOPHILS % 0.2 % 08/22/2025 11:[address] [facility] IMMATURE GRANS % 0.3 % 08/22/20 11:[address] [facility] NRBC % 0.0 % 08/22/2025 11:[address] [facility] ABS. NEUTROPHILS 8.11 1.60 - 8.30 x10'3/uL 08/22/2025 11:[address] [facility] ABS. LYMPHOCYTES 0.70(L) 0.80 - 4.70 x10'3/uL 08/22/2025 11:[address] [facility] ABS. MONOCYTES 1.06 0.00 - 1.50 x10'3/uL 08/22/2025 11:[address] [facility] ABS. EOSINOPHILS 0.09 0.00 - 0.40 x10'3/uL 08/22/2025 11:[address] [facility] ABS. BASOPHILS 0.02 0.00 - 0.20 x10'3/uL 08/22/2025 11:[address] [facility] ABS. IMMATURE GRANULOCYTES 0.03 0.00 - 0.03 x10'3/uL 08/22/2025 11:[address] [facility] ABS. NUCLEATED RBC'S 0.00 0.00 - 0.01 x10'3/uL 08/22/2025 11:[address] [facility] 08/22/2025 10:5 4 AM CDT us Perla Coffman [employer] LABORATORY Final Result Performing Organization Address City/[facility]/ZIP Co de Phone Number [facility] [address] [place] [address], [place] [phone] * AMYLASE (08/22/2025 10:54 AM CDT) AMYLASE S/P/B 54 25 - 115 UNITS/L 08/22/2025 11:[address] [facility] 08/22/2025 10:5 4 AM CDT us Perla Coffman [employer] LABORATORY Final Result Performing Organization Address City/[facility]/ZIP Co de Phone Number [facility] [address] [place] [address], [place] [phone] * LIPASE (08/22/2025 10:54 AM CDT) LIPASE 31 16 - 77 UNITS/L 08/22/2025 11:[address] [facility] 08/22/2025 10:5 4 AM CDT us Perla Coffman [employer] LABORATORY Final Result Performing Organization Address City/[facility]/ZIP Co de Phone Number [facility] [address] [place] [address], [place] [phone] * CT ABD+PEL WO CON (08/22/2025 10:47 AM CDT) Anatomical Region Laterality Modality Abdomen Computed Tomogra phy 08/22/2025 10:5 4 AM CDT Impressions 08/22/2025 11:22 AM CDT IMPRESSION: 1. Obstructive uropathy on the right as described secondary to 5 mm calculus in the distal ureter. 2. Bilateral nephrolithiasis. 3. Indeterminate right lower lobe mass as described. Follow-up with contrast- enhanced CT of the chest on a routine basis is recommended for further assessment. 4. Colonic diverticulosis. 5. Fat-containing umbilical and right inguinal hernias. 6. Bilateral L5 spondylolysis with minimal L5-S1 spondylolisthesis. Ordered By: PERLA COFFMAN Interpreted By: Abdiel Denson MD, 08/22/2025 10:54 AM Narrative 08/22/2025 11:22 AM CDT [place] [address] [place] [address] Examination: CT of the abdomen and pelvis without contrast. Exam time: 1048 hours. Clinical history: Right lower quadrant pain. Nausea and vomiting. Comparison: None. Technique: Spiral scanning was performed through the abdomen and pelvis without contrast. Sagittal and coronal reconstructions were performed from the data set. A dose lowering technique was used for this procedure, which may include, but is not limited to, dose reduction techniques, automated exposure control, the use of iterative reconstruction and ALARA/Image Gently techniques. Findings: There is an approximately 3 cm relatively low-attenuation sharply circumscribed mass in the right lower lobe abutting the inferior pulmonary vein (image 15 for example), of uncertain etiology. Follow-up with contrast-enhanced CT of the chest on a routine basis is recommended for more complete assessment. Allowing for respiratory motion, the lung bases are otherwise clear. No pleural effusions are seen. The liver, spleen, gallbladder, pancreas and adrenal glands appear unremarkable for the noncontrast technique. There is a 2 mm calculus in the lower pole of the left kidney. There are 3-4 2 mm or less in size calculi scattered in the right kidney. The kidneys are otherwise intrinsically unremarkable for the noncontrast technique. There is moderate right hydronephrosis and hydroureter with associated perinephric stranding. The hydroureter extends to within a few centimeters of the UVJ where a 5 mm calculus is present (image 146 for example). No other urinary tract calculi are identified. Pelvic phleboliths are noted. The urinary bladder is nondistended. A normal-appearing appendix cannot be clearly identified however, there are no secondary findings to suggest appendicitis. There is colonic diverticulosis without signs of diverticulitis. There is no ascites, lymphadenopathy or bowel distention. The caliber of the abdominal aorta is normal. There is a small fat-containing umbilical hernia. There is a small to moderate-sized fat-containing right inguinal hernia. There is bilateral L5 spondylolysis with minimal L5-S1 spondylolisthesis. Procedure Note Abdiel Denson MD - 08/22/2025 [facility] [address] [place] [address] Examination: CT of the abdomen and pelvis without contrast. Exam time: 1048 hours. Clinical history: Right lower quadrant pain. Nausea and vomiting. Comparison: None. Technique: Spiral scanning was performed through the abdomen and pelviswithout contrast. Sagittal and coronal reconstructions were performed fromthe data set. A dose lowering technique was used for this procedure,which may include, but is not limited to, dose reduction techniques,automated exposure control, the use of iterative reconstruction andALARA/Image Gently techniques. Findings: There is an approximately 3 cm relatively low-attenuationsharply circumscribed mass in the right lower lobe abutting the inferiorpulmonary vein (image 15 for example), of uncertain etiology. Follow-upwith contrast-enhanced CT of the chest on a routine basis is recommendedfor more complete assessment. Allowing for respiratory motion, the lungbases are otherwise clear. No pleural effusions are seen. The liver,spleen, gallbladder, pancreas and adrenal glands appear unremarkable forthe noncontrast technique. There is a 2 mm calculus in the lower pole ofthe left kidney. There are 3-4 2 mm or less in size calculi scattered inthe right kidney. The kidneys are otherwise intrinsically unremarkable forthe noncontrast technique. There is moderate right hydronephrosis andhydroureter with associated perinephric stranding. The hydroureter extendsto within a few centimeters of the UVJ where a 5 mm calculus is present(image 146 for example). No other urinary tract calculi are identified.Pelvic phleboliths are noted. The urinary bladder is nondistended. Anormal-appearing appendix cannot be clearly identified however, there areno secondary findings to suggest appendicitis. There is colonicdiverticulosis without signs of diverticulitis. There is no ascites,lymphadenopathy or bowel distention. The caliber of the abdominal aorta isnormal. There is a small fat-containing umbilical hernia. There is a smallto moderate-sized fat-containing right inguinal hernia. There is bilateralL5 spondylolysis with minimal L5-S1 spondylolisthesis. IMPRESSION: 1. Obstructive uropathy on the right as described secondary to 5 mmcalculus in the distal ureter. 2. Bilateral nephrolithiasis. 3. Indeterminate right lower lobe mass as described. Follow-up withcontrast- enhanced CT of the chest on a routine basis is recommended forfurther assessment. 4. Colonic diverticulosis. 5. Fat-containing umbilical and right inguinal hernias. 6. Bilateral L5 spondylolysis with minimal L5-S1 spondylolisthesis. Ordered By: PERLA COFFMAN Interpreted By: Abdiel Denson MD, 08/22/2025 10:54 AM Perla Coffman [employer] CT Final Result * OCCULT BLOOD, FECES (03/01/2025 10:10 AM CDT) OCCULT BLOOD FECAL NEGATIVE NEGATIVE 03/01/2025 10:[address] [facility] STOOL SPECIMEN / Unknown 03/01/2025 10:10 AM CDT Mariann Bermeo [facility]- BODY FLUIDS AND STOOLS OR DERABLES Final Result [facility] [place] [address], * (ABNORMAL) HEMOGLOBIN, GLYCOSYLATED (03/01/2025 5:24 AM CDT) HGB A1C 6.3(H) <5.7 % 03/01/2025 12:32 PM CDT [facility] ESTIMATED AVG GLUCOSE 134(H) 74 - 114 MG/DL 03/01/2025 12:32 PM CDT [facility] 03/01/2025 5:24 AM CDT Nael Rubio MD LABORATORY Final Resul t Performing Organization Address [facility] de Phone Number [facility] [address] [place] [address], [id number] * HEPATITIS PANEL,ACUTE (03/01/2025 5:24 AM CDT) HEPATITIS B SURFACE AG NON-REACT EFREM NON-REACT EFREM 03/01/2025 6:28 PM CDT [facility] Comment:HBsAg NOT DETECTED. HEP B CORE IGM NON-REACT EFREM NON-REACT EFREM 03/01/2025 6:28 PM CDT [facility] Comment: IgM ANTI HBc NOT DETECTED. DOES NOT EXCLUDE THE POSSIBILITY OF EXPOSURE TO OR INFECTION WITH HBV. NO RETEST REQUIRED. HIGH DOSES OF BIOTIN MAY INTERFERE WITH THIS TEST RESULT. CORRELATION TO CLINICAL HISTORY AND PRESENTATION RECOMMENDED. HAV IGM NON-REACT EFREM NON-REACT EFREM 03/01/2025 6:28 PM CDT [facility] Comment: IgM ANTI HAV NOT DETECTED. DOES NOT EXCLUDE THE POSSIBILITY OF EXPOSURE TO OR INFECTION WITH HAV. LEVELS OF IgM ANTI HAV MAY BE BELOW THE CUTOFF IN EARLY INFECTION. HEPATITIS C AB NON-REACT EFREM NON-REACT EFREM 03/01/2025 6:28 PM CDT [facility] Comment: ANTIBODIES TO HCV NOT DETECTED. DOES NOT EXCLUDE THE POSSIBILITY OF EXPOSURE TO HCV. 03/01/2025 5:24 AM CDT Nael Rubio MD LABORATORY Final Resul t Performing Organization Address [facility]/ZIP Co de Phone Number [facility] [address] [place] [address], [phone] from Last 3 Months or Most Recently Relevant to Health Maintenance Insurance [facility] Advance Directives * Full Code (Latest Code Status on File) Date Activated Date Inactivated Comments 03/27/2025 2:53 PM 03/27/2025 6:23 PM * Full Code Date Activated Date Inactivated Comments 02/28/2025 4:56 PM 03/01/2025 2:18 PM Care Teams Identity Management Consultant Relationship Specialty Start Date End Date Nael Rubio MD [address] [facility] [place] [phone] PCP - General FAMILY PRACTICE 05/12/22 Itzel Mattson MD [address] [place] [address] [place] [employer] Record Clerk CARDIOVASCULAR DISEASE 03/14/25 [place] [address] [place] [phone] NEUROLOGICAL SURGERY 03/18/25
== END 2025-11-06 12:09 | disposition home or self-care (01) ==
PROVIDERS: PCP Family Medicine; Visit Provider Otolaryngology
DX: E04.2 Nontoxic multinodular goiter (principal)
CPT/HCPCS: 10005; 88172; 88173; 88177; 88305